=== PATIENT | female | born 1990 | race Caucasian/White ===

== ENCOUNTER 2016-05-08 11:06 | Emergency (ER) | payer MEDICARE, MEDICAID ==
[2016-05-08] MEDS ORDERED: Fluorescein Opthalmic Strip ONE (11:45)
[2016-05-08] MEDS ORDERED: Tetracaine HCl 0.5% Ophth Soln 2 ML Bottle ONE (11:45)
== END 2016-05-08 12:21 | disposition home or self-care (01) ==
LOC: NAV ERS 11:06
DX: S05.01XA Injury of conjunctiva and corneal abrasion without foreign body, right eye, initial encounter (principal); I10 Essential (primary) hypertension; X58.XXXA Exposure to other specified factors, initial encounter
CPT/HCPCS: 99283